=== PATIENT | female | born 1940 | race Native Hawaiian/Other Pacific Islander ===

== ENCOUNTER 2018-02-11 06:37 | Day surgery (SDC) | payer MEDICARE, MEDICAID ==
[2018-02-06 11:03] VITALS: BMI 21.9
[2018-02-11] MEDS ORDERED: HEPARIN-NS 5,000 UNITS/500 ML 5,000 UNIT/500 ML BAG IV ONE (07:34)
[2018-02-11] MEDS ORDERED: ceFAZolin IV 1 gm in Dextrose 1 GM/50 ML BAG IVPB ONE (07:35)
[2018-02-11 07:51] LABS: CALCIUM 9.1 mg/dl (8.6-10.4)
[2018-02-11] MEDS ORDERED: Rocuronium 10 mg/ml (5 ml) ONE (07:58)
[2018-02-11] MEDS ORDERED: Succinylcholine Chloride 20 mg/ml Syr (5 ml) IV ONE (07:58)
[2018-02-11] MEDS ORDERED: Propofol 10 mg/ml Inj (20 ML) ONE (07:59)
[2018-02-11] MEDS ORDERED: ePHEDrine 50 mg/ml Inj ONE (08:18)
[2018-02-11] MEDS ORDERED: Thrombin Topical 20,000 Intl Units Spray Kit TOP ONE (10:04)
[2018-02-11 10:14] VITALS: PULSE 56; RESP 20; TEMP 97.9; O2SAT 100
[2018-02-11] MEDS ORDERED: Neostigmine Methylsulfate 3mg/3ml Syringe IV ONE (10:25)
--- NOTE | 2018-02-11 10:37 | PCM.SURG1 ---
Surgeon's Initial Post Op Note - Surgeon's Notes Surgeon: alexanrda Clinical Biostatistician: 0 Type of Anesthesia: General LMA Anesthesia Administered By: titus Pre-Operative Diagnosis: renal failure Operative Findings: fistula from bifurcation to spatulated cephalic vein Post-Operative Diagnosis: same Operation Performed: biderctional av fistula cephalic vein to bifurcation of brachial artery Specimen/Specimens Removed: 0 Estimated Blood Loss: EBL {In ML}: 50 Blood Products Given: N/A Drains Used: No Drains Post-Op Condition: Good Date of Surgery/Procedure: 02/11/18 Time of Surgery/Procedure: 10:37
[2018-02-11] MEDS ORDERED: Oxycodone/Acetaminophen 5/325 mg Tab PO PRN (10:38)
[2018-02-11] MEDS ORDERED: HYDROmorphone 0.5 mg/0.5 ml ISec IVP PRN (10:45)
[2018-02-11 14:47] VITALS: BP 126/73
--- NOTE | 2018-02-11 22:37 | OP ---
PROCEDURE DATE: 02/11/2018 PREOPERATIVE DIAGNOSIS: Renal failure. POSTOPERATIVE DIAGNOSIS: Renal failure. PROCEDURE CARRIED OUT: Brachiocephalic fistula, left elbow. SURGEON: Yoandy Sanders Jr., MD DIRECTOR OF CHANNEL MARKETING: None. ANESTHESIOLOGIST: Dr. Crawford. TYPE OF ANESTHESIA: General anesthesia. INDICATION FOR PROCEDURE: The patient is 78-year-old woman with renal insufficiency, now requiring dialysis. OPERATIVE FINDINGS: Fistula was created between the very good cephalic vein and the adjacent brachial artery just at the bifurcation and tapering onto the radial artery. At the end of the procedure, there was a palpable pulse at the wrist and excellent flow to the fistula. The anastomosis was carried out using loupe magnification and heparin anticoagulation. There is excellent flow to the fistula and a palpable pulse at the wrist. DESCRIPTION OF PROCEDURE: The patient was given general anesthesia and intravenous antibiotics. The vein was marked with the use of ultrasound. The adjacent areas were identified. An end-to-side spatula and fistula was carried out in bidirectional fashion, centering on the elbow. After completion of the anastomosis and obtaining hemostasis, there was a persistent ooze. The suture was reinforced and taken on the suture line, but basically there was no identifiable source that we could identify. We spent over an hour. We waited till heparin was off. We also administered thrombin locally, which appeared to control . We dried prior to closure. We then closed the wound in two layers. We then closed the skin with nylon sutures. BLOOD LOSS: 600 mL. OPERATION CARRIED OUT: Brachiocephalic fistula, left elbow, bidirectional. Yoandy Sanders Jr., MD cc: Tigre Gavin MD
== END 2018-02-11 15:04 | disposition home or self-care (01) ==
LOC: C.SDS 06:37
PROVIDERS: ATTEND Surgery Vascular Surgery
DX: N19 Unspecified kidney failure (principal); Z99.2 Dependence on renal dialysis
CPT/HCPCS: 36415; 36821; 80048; J0690; J1644; J2001; J2405; J2704; J2710; J3010

== ENCOUNTER 2018-06-05 12:18 | Inpatient (IN) | payer MEDICARE, MEDICAID ==
[2018-06-05 12:19] VITALS: BMI 21.9
--- NOTE | 2018-06-05 13:03 | C.PDOC ---
History Of Present Illness 78 year old female with worsening potassium referred for evaluation by Dr. omer. Patient with history of CRI, patient is on keyexalate every other day for one year. Patient denies new symptoms, shortness of breath/dyspnea on exerti on, chest pain and leg swelling. Patient reports normal urinary output. Patient states "I feel fine." WORSENING POTASSIUM REFERRED FOR EVAL BY DR OMER. HO CRI, PS ON KAYEXALATE EVERY OTHER DAY X 1 YR. DENIES NEW SX, NO SOB/SANTANA, CP, LEG SWELL. NORMAL URINE OUTPUT. "I FEEL FINE" EXAM NAD LUNGS CTA B/L NO W/R/R CV RRR ABD NEG NO EDEMA GAIT WNL REMAINDER NEG Time Seen by Provider: 06/05/18 13:01 Chief Complaint (Nursing): Medical Clearance History Per: Patient History/Exam Limitations: no limitations Onset/Duration Of Symptoms: Hrs Current Symptoms Are (Timing): Still Present Additional History Per: Patient Past Medical History Reviewed: Historical Data, Nursing Documentation, Vital Signs Vital Signs: Last Vital Signs Temp 98.2 F 06/05/18 12:32 Pulse 64 06/05/18 12:32 Resp 17 06/05/18 12:32 BP 159/71 H 06/05/18 12:32 Pulse Ox 100 06/05/18 12:32 - Medical History PMH: HTN, Hypercholesterolemia, End Stage Renal Disease, Chronic Kidney Disease Surgical History: No Surg Hx Family History: States: Unknown Family Hx - Social History Hx Alcohol Use: No Hx Substance Use: No - Immunization History Hx Tetanus Toxoid Vaccination: No Hx Influenza Vaccination: Yes Hx Pneumococcal Vaccination: Yes Review Of Systems Constitutional: Positive for: Other (abnormal labs ) Cardiovascular: Negative for: Chest Pain Respiratory: Negative for: Shortness of Breath, SOB with Excertion Skin: Negative for: Other (leg swelling ) Physical Exam - Physical Exam Appears: Non-toxic, No Acute Distress Skin: Normal Color, Warm, Dry Head: Atraumatic, Normacephalic Eye(s): bilateral: Normal Inspection Oral Mucosa: Moist Neck: Supple Chest: Symmetrical, No Deformity, No Tenderness Cardiovascular: Rhythm Regular, No Murmur Respiratory: Normal Breath Sounds, No Rales, No Rhonchi, No Wheezing, Other (clear to ausculatation bilaterally ) Gastrointestinal/Abdominal: Soft, No Tenderness, No Guarding, No Rebound Extremity: Normal ROM, Capillary Refill (less than 2 seconds ), No Swelling Neurological/Psych: Oriented x3, Normal Speech, Normal Cognition Gait: Steady ED Course And Treatment - Laboratory Results Result Diagrams: 06/05/18 14:16 06/05/18 15:20 ECG: Interpreted By Me ECG Rhythm: Sinus Rhythm ECG Interpretation: Normal Rate From EC O2 Sat by Pulse Oximetry: 100 (on RA ) Pulse Ox Interpretation: Normal - Radiology CXR: Interpreted by Me CXR Interpretation: Yes: No Acute Disease Progress - Re-Evaluation Re-evaluation Note: 06/05/18 13:02 D/W DR OMER: NEW [facility] HD +HYPERKALEMIA OUTPT. GFR 8. 5.7 ON KAYEXALATE 05/1506/05/18 15:10 EXAM UNCH INITIAL D/W DR TRUONG WILL ADMIT - Data Reviewed Data Reviewed: Lab, Diagnostic imaging, EKG, Old records Disposition Counseled Patient/Family Regarding: Studies Performed, Diagnosis - Disposition Disposition: HOSPITALIZED Disposition Time: 15:14 Condition: STABLE - POA Present On Arrival: None - Clinical Impression Clinical Impression: ESRD (end stage renal disease) - Scribe Statement The provider has reviewed the documentation as recorded by the Scribe (Jayna Carter) Provider Attestation: All medical record entries made by the Scribe were at my direction and personally dictated by me. I have reviewed the chart and agree that the record accurately reflects my personal performance of the history, physical exam, medical decision making, and the department course for this patient. I have also personally directed, reviewed, and agree with the discharge instructions and disposition.
--- NOTE | 2018-06-05 14:06 | RAD ---
Date of service: 06/05/2018 PROCEDURE: CHEST RADIOGRAPH, 1 VIEW HISTORY: SOB COMPARISON: 02/06/2018 FINDINGS: LUNGS: Clear. PLEURA: No pneumothorax or pleural fluid seen. CARDIOVASCULAR: No aortic atherosclerotic calcification present. Normal. OSSEOUS STRUCTURES: No significant abnormalities. VISUALIZED UPPER ABDOMEN: Normal. OTHER FINDINGS: None. IMPRESSION: No active disease.No significant interval change compared to the prior examination(s). Concordant results with the preliminary interpretation rendered by the emergency department physician procedure.
[2018-06-05 14:31] LABS: BASO % 0.5 % (0.0-2.0); EOS # 0.1 K/uL (0.0-0.7); EOS % 2.2 % (0.0-4.0); HEMOGLOBIN 8.7 g/dL (11.0-16.0); LYMPH # 1.5 K/uL (1.0-4.3); LYMPH % 27.5 % (20.0-40.0); MEAN CELL VOLUME 94.7 fL (81.0-99.0); MEAN CORPUSCULAR HEMOGLOBIN 30.8 pg (27.0-31.0); MEAN CORPUSCULAR HGB CONC 32.5 g/dL (33.0-37.0); MEAN PLATELET VOLUME 7.1 fL (7.2-11.7); MONO # 0.4 K/uL (0.0-0.8); NEUT # 3.4 K/uL (1.8-7.0); NEUT % 61.8 % (50.0-75.0); RBC 2.83 Mil/uL (3.80-5.20); RED CELL DISTRIBUTION WIDTH 12.8 % (11.5-14.5); WHITE BLOOD COUNT 5.5 K/uL (4.8-10.8)
--- NOTE | 2018-06-05 14:36 | CP.PCM.CON ---
History of Present Illness - History of Present Illness History of Present Illness: 78 y/o female admitted for increasing hyperkalemia, progressive renal failure. s/p AV fistula placement 14 weeks ago in preparation for dialysis. Has had severe weight loss due to uremia Last GFR=8 PMH: CKD 5 SEC HPT chronic anemia HTN pro proteinuria hyperlipidemia PSH- AV fistla FH- no CKD Review of Systems - Constitutional Constitutional: Fatigue, Lethargy, Weight Loss - EENT Eyes: absent: As Per HPI, Blind Spots, Blurred Vision, Change in Vision, Decreased Night Vision, Diplopia, Discharge, Dry Eye, Exophthalmos, Floaters, Irritation, Itchy Eyes, Loss of Peripheral Vision, Pain, Photophobia, Requires Corrective Lenses, Sees Flashes, Spots in Vision, Tunnel Vision, Other Visual Disturbances, Loss of Vision, Other Ears: absent: As Per HPI, Decreased Hearing, Ear Discharge, Ear Pain, Tinnitus, Abnormal Hearing, Disequilibrium, Dizziness, Other Nose/Mouth/Throat: absent: As Per HPI, Epistaxis, Nasal Congestion, Nasal Discharge, Nasal Obstruction, Nasal Trauma, Nose Pain, Post Nasal Drip, Sinus Pain, Sinus Pressure, Bleeding Gums, Change in Voice, Dental Pain, Dry Mouth, Dysphagia, Halitosis, Hoarsness, Lip Swelling, Mouth Lesions, Mouth Pain, Odynophagia, Sore Throat, Throat Swelling, Tongue Swelling, Facial Pain, Neck Pain, Neck Mass, Other - Cardiovascular Cardiovascular: Dyspnea on Exertion, Lightheadedness - Respiratory Respiratory: Dyspnea on Exertion - Gastrointestinal Gastrointestinal: Early Satiety, Nausea - Genitourinary Genitourinary: As Per HPI - Musculoskeletal Musculoskeletal: Muscle Cramps, Muscle Weakness, Myalgias - Neurological Neurological: Weakness Past Patient History - Past Medical History & Family History Past Medical History?: Yes Past Family History: Reviewed and not pertinent - Past Social History Smoking Status: Never Smoked Chewing Tobacco Use: No Cigar Use: No Alcohol: None Drugs: Denies Home Situation {Lives}: With Family Domestic Violence: Negative - CARDIAC Hx Hypercholesterolemia: Yes Hx Hypertension: Yes - PULMONARY Hx Respiratory Disorders: No - NEUROLOGICAL Hx Neurological Disorder: No - HEENT Hx HEENT Problems: No - RENAL Hx Chronic Kidney Disease: Yes - ENDOCRINE/METABOLIC Hx Endocrine Disorders: No - HEMATOLOGICAL/ONCOLOGICAL Hx Blood Disorders: No - INTEGUMENTARY Hx Dermatological Problems: No - MUSCULOSKELETAL/RHEUMATOLOGICAL Hx Musculoskeletal Disorders: No - GASTROINTESTINAL Hx Gastrointestinal Disorders: No - GENITOURINARY/GYNECOLOGICAL Hx Genitourinary Disorders: No - PSYCHIATRIC Hx Substance Use: No - SURGICAL HISTORY Hx Surgeries: Yes Hx Tubal Ligation: Yes Hx Vascular Access Device: Yes (LEFT UPPER ARM AV FISTULA) - ANESTHESIA Hx Anesthesia: Yes Hx Anesthesia Reactions: No Hx Malignant Hyperthermia: No Meds Allergies/Adverse Reactions: Allergies Allergy/AdvReac Type Severity Reaction Status Date / Time No Known Allergies Allergy Verified 06/05/18 12:35 Physical Exam - Constitutional Appears: No Acute Distress, Chronically Ill - Head Exam Head Exam: ATRAUMATIC, NORMAL INSPECTION - Eye Exam Eye Exam: EOMI, Normal appearance - Neck Exam Neck exam: Positive for: Normal Inspection. Negative for: Tenderness - Respiratory Exam Respiratory Exam: Clear to Auscultation Bilateral, NORMAL BREATHING PATTERN - Cardiovascular Exam Cardiovascular Exam: REGULAR RHYTHM, +S1 - GI/Abdominal Exam GI & Abdominal Exam: Soft. absent: Tenderness - Extremities Exam Extremities exam: Positive for: normal inspection. Negative for: tenderness - Neurological Exam Neurological exam: Alert, CN II-XII Intact - Skin Skin Exam: Dry, Warm Results - Vital Signs Recent Vital Signs: Last Vital Signs Temp 98.2 F 06/05/18 12:32 Pulse 62 06/05/18 14:17 Resp 15 06/05/18 14:17 BP 151/56 H 06/05/18 14:17 Pulse Ox 99 06/05/18 14:17 Assessment & Plan (1) ESRD (end stage renal disease) Status: Acute (2) Hypertensive chronic kidney disease with stage 5 chronic kidney disease or end stage renal disease Status: Acute (3) Proteinuria Status: Acute (4) Hyperlipidemia Status: Acute (5) Secondary hyperparathyroidism Status: Acute - Assessment and Plan (Free Text) Plan: check hep panel dialysis today recheck chemistries, cbc
[2018-06-05 14:43] LABS: ALB/GLOB RATIO 1.6 (1.0-2.1); ALBUMIN 4.2 g/dL (3.5-5.0); CALCIUM 9.3 mg/dl (8.6-10.4)
[2018-06-05 15:50] LABS: ALB/GLOB RATIO 1.7 (1.0-2.1); ALBUMIN 4.1 g/dL (3.5-5.0); ALT/SGPT 11 U/L (9-52); AST/SGOT 29 U/L (14-36); BLOOD UREA NITROGEN 68 mg/dL (7-17); CALCIUM 9.2 mg/dl (8.6-10.4); GFR NON-AFRICAN AMERICAN 10
--- NOTE | 2018-06-05 16:09 | CP.PCM.HP ---
<Matt Glynn - Last Filed: 06/05/18 16:01> History of Present Illness - History of Present Illness History of Present Illness: PGY-1 History and Physical [address] Huizar Patient is a 78 year old [place] female with past medical history of ESRD requiring HD (MWF), chronic anemia, HTN, HLD, arthritis brought in for evaluation from Dr. Gavin's office for progressive renal failure, worsening hyperkalemia, requiring 1st time HD session. Patient has no acute somatic complaints at this time, states "I feel fine". She is anxious about starting hemodialysis but was reassured during interview. No fevers/chills, headaches, dizziness, chest pain, palpitations, sob, cough, abdominal pain, n/v/d/c, dysuria, or changes in stool. PMHx: ESRD requiring HD (MWF), chronic anemia, HTN, HLD, arthritis PSHx: L AVF placement (01/2018) Allergies: NKDA Home Medications: Norvasc 2.5 mg PO daily Coreg 3.125 mg PO daily Crestor 5 mg PO HS daily Family Hx: Sister--ESRD on HD, uterine cancer Social Hx: denies alcohol, tobacco, illicit drug use Present on Admission - Present on Admission Any Indicators Present on Admission: No Review of Systems - Review of Systems All systems: reviewed and no additional remarkable complaints except Review of Systems: as per HPI Past Patient History - Past Medical History & Family History Past Medical History?: Yes Past Family History: Reviewed and not pertinent - Past Social History Smoking Status: Never Smoked Chewing Tobacco Use: No Cigar Use: No Alcohol: None Drugs: Denies Home Situation {Lives}: With Family Domestic Violence: Negative - CARDIAC Hx Hypercholesterolemia: Yes Hx Hypertension: Yes - PULMONARY Hx Respiratory Disorders: No - NEUROLOGICAL Hx Neurological Disorder: No - HEENT Hx HEENT Problems: No - RENAL Hx Chronic Kidney Disease: Yes - ENDOCRINE/METABOLIC Hx Endocrine Disorders: No - HEMATOLOGICAL/ONCOLOGICAL Hx Blood Disorders: No - INTEGUMENTARY Hx Dermatological Problems: No - MUSCULOSKELETAL/RHEUMATOLOGICAL Hx Musculoskeletal Disorders: No - GASTROINTESTINAL Hx Gastrointestinal Disorders: No - GENITOURINARY/GYNECOLOGICAL Hx Genitourinary Disorders: No - PSYCHIATRIC Hx Substance Use: No - SURGICAL HISTORY Hx Surgeries: Yes Hx Tubal Ligation: Yes Hx Vascular Access Device: Yes (LEFT UPPER ARM AV FISTULA) - ANESTHESIA Hx Anesthesia: Yes Hx Anesthesia Reactions: No Hx Malignant Hyperthermia: No Meds Allergies/Adverse Reactions: Allergies Allergy/AdvReac Type Severity Reaction Status Date / Time No Known Allergies Allergy Verified 06/05/18 12:35 Physical Exam - Constitutional Appears: Non-toxic, No Acute Distress - Head Exam Head Exam: ATRAUMATIC, NORMAL INSPECTION, NORMOCEPHALIC - Eye Exam Eye Exam: EOMI, Normal appearance, PERRL Pupil Exam: NORMAL ACCOMODATION - ENT Exam ENT Exam: Mucous Membranes Moist, Normal Exam - Neck Exam Neck exam: Positive for: Full Rom, Normal Inspection. Negative for: Tenderness - Respiratory Exam Respiratory Exam: Clear to Auscultation Bilateral, NORMAL BREATHING PATTERN. absent: Accessory Muscle Use, Rales, Rhonchi, Wheezes, Respiratory Distress, Stridor - Cardiovascular Exam Cardiovascular Exam: REGULAR RHYTHM, +S1, +S2 - GI/Abdominal Exam GI & Abdominal Exam: Normal Bowel Sounds, Soft. absent: Distended, Firm, Guarding, Rebound, Rigid, Tenderness - Extremities Exam Extremities exam: Positive for: normal capillary refill, normal inspection, pedal pulses present. Negative for: calf tenderness, pedal edema Additional comments: L AVF intact, palpable/audible thrill - Back Exam Back exam: NORMAL INSPECTION - Neurological Exam Neurological exam: Alert, CN II-XII Intact, Oriented x3 - Skin Skin Exam: Dry, Intact, Normal Color, Warm Results - Vital Signs Recent Vital Signs: Last Vital Signs Temp 98.2 F 06/05/18 12:32 Pulse 62 06/05/18 14:17 Resp 15 06/05/18 14:17 BP 151/56 H 06/05/18 14:17 Pulse Ox 100 06/05/18 15:14 - Labs Result Diagrams: 06/05/18 14:16 06/05/18 15:20 Labs: Laboratory Results - last 24 hr 06/05/18 06/05/18 06/05/18 14:16 14:16 15:20 WBC 5.5 RBC 2.83 L Hgb 8.7 L Hct 26.8 L MCV 94.7 MCH 30.8 MCHC 32.5 L RDW 12.8 Plt Count 131 MPV 7.1 L Neut % (Auto) 61.8 Lymph % (Auto) 27.5 [place] % (Auto) 8.0 Eos % (Auto) 2.2 Baso % (Auto) 0.5 Neut # (Auto) 3.4 Lymph # (Auto) 1.5 [place] # (Auto) 0.4 Eos # (Auto) 0.1 Baso # (Auto) 0.0 Sodium 138 137 Potassium 4.7 4.4 Chloride 105 103 Carbon Dioxide 24 24 Anion Gap 14 14 BUN 70 H 68 H Creatinine 4.2 H 4.3 H Est GFR ( Amer) 12 12 Est GFR (Non-Af Amer) 10 10 Random Glucose 120 H 112 H Calcium 9.3 9.2 % Saturation Total Bilirubin 0.4 0.3 AST 33 29 ALT 12 11 Alkaline Phosphatase 54 61 Total Protein 6.8 6.5 Albumin 4.2 4.1 Globulin 2.7 2.4 Albumin/Globulin Ratio 1.6 1.7 06/05/18 15:20 WBC RBC Hgb Hct MCV MCH MCHC RDW Plt Count MPV Neut % (Auto) Lymph % (Auto) [place] % (Auto) Eos % (Auto) Baso % (Auto) Neut # (Auto) Lymph # (Auto) [place] # (Auto) Eos # (Auto) Baso # (Auto) Sodium Potassium Chloride Carbon Dioxide Anion Gap BUN Creatinine Est GFR ( Amer) Est GFR (Non-Af Amer) Random Glucose Calcium % Saturation 17 L Total Bilirubin AST ALT Alkaline Phosphatase Total Protein Albumin Globulin Albumin/Globulin Ratio Assessment & Plan - Assessment and Plan (Free Text) Assessment: 78 year old female with pmhx of ESRD requiring HD (MWF), HTN, HLD, chronic anemia sent to ED by Dr. Gavin for increasing hyperkalemia, progressive renal failure, in need of 1st time HD. Plan: ESRD on HD (MWF) -BUN/Cr: 70/4.2 -K: 4.7 -GFR (05/2018: 8 -s/p L AVF placement (01/2018) in preparation for HD -patient to undergo 1st time HD session this PM -CXR: no acute findings -EKG: NSR @ 60 bpm -Nephrology (Dr. Gavin) on board -Calcitriol 0.25 mcg PO daily -Sevelamer 800 mg PO TIDCC Anemia -Hb/Hct: 8.7/26.8, continue to monitor -iron panel HTN -resume home med -Norvasc 2.5 mg PO daily -Coreg 3.125 mg PO daily HLD -f/u lipid panel -resume home Crestor 5 mg PO HS PPx, Diet, Disposition -DVT ppx: scds, heparin 5000 units sc q8h -GI ppx: not indicated at this time -Diet: renal diet -PT on board Case discussed with Dr. Gaye Glynn DO, PGY-1 <Chalino Huizar H - Last Filed: 06/05/18 17:56> Results - Vital Signs Recent Vital Signs: Last Vital Signs Temp 97.7 F 06/05/18 16:35 Pulse 69 06/05/18 16:35 Resp 16 06/05/18 16:35 BP 169/83 H 06/05/18 16:50 Pulse Ox 100 06/05/18 16:35 - Labs Result Diagrams: 06/05/18 14:16 06/05/18 15:20 Labs: Laboratory Results - last 24 hr 06/05/18 06/05/18 06/05/18 14:16 14:16 15:20 WBC 5.5 RBC 2.83 L Hgb 8.7 L Hct 26.8 L MCV 94.7 MCH 30.8 MCHC 32.5 L RDW 12.8 Plt Count 131 MPV 7.1 L Neut % (Auto) 61.8 Lymph % (Auto) 27.5 [place] % (Auto) 8.0 Eos % (Auto) 2.2 Baso % (Auto) 0.5 Neut # (Auto) 3.4 Lymph # (Auto) 1.5 [place] # (Auto) 0.4 Eos # (Auto) 0.1 Baso # (Auto) 0.0 Sodium 138 137 Potassium 4.7 4.4 Chloride 105 103 Carbon Dioxide 24 24 Anion Gap 14 14 BUN 70 H 68 H Creatinine 4.2 H 4.3 H Est GFR ( Amer) 12 12 Est GFR (Non-Af Amer) 10 10 Random Glucose 120 H 112 H Calcium 9.3 9.2 % Saturation Ferritin 272.0 Total Bilirubin 0.4 0.3 AST 33 29 ALT 12 11 Alkaline Phosphatase 54 61 Total Protein 6.8 6.5 Albumin 4.2 4.1 Globulin 2.7 2.4 Albumin/Globulin Ratio 1.6 1.7 Hep Bs Antigen Negative Hep B Core IgM Ab Negative Hepatitis C Antibody Negative 06/05/18 15:20 WBC RBC Hgb Hct MCV MCH MCHC RDW Plt Count MPV Neut % (Auto) Lymph % (Auto) [place] % (Auto) Eos % (Auto) Baso % (Auto) Neut # (Auto) Lymph # (Auto) [place] # (Auto) Eos # (Auto) Baso # (Auto) Sodium Potassium Chloride Carbon Dioxide Anion Gap BUN Creatinine Est GFR ( Amer) Est GFR (Non-Af Amer) Random Glucose Calcium % Saturation 17 L Ferritin Total Bilirubin AST ALT Alkaline Phosphatase Total Protein Albumin Globulin Albumin/Globulin Ratio Hep Bs Antigen Hep B Core IgM Ab Hepatitis C Antibody Attending/Attestation - Attestation I have personally seen and examined this patient.: Yes I have fully participated in the care of the patient.: Yes I have reviewed all pertinent clinical information: Yes Notes (Text): 06/05/18 17:55 Medical attending: Patient was seen and examined by me. Agree with the above note by the resident The patient was not in any acute distress The patient was sent in for her first time HD. She has a mature AVF on the R arm She already has orders for HD for tonight. Chalino Huizar
[2018-06-05 16:17] LABS: HEPATITIS B SURFACE AG Negative (NEGATIVE)
[2018-06-05 16:22] LABS: HEPATITIS B CORE AB NEGATIVE (NEGATIVE)
[2018-06-05 16:35] LABS: HEPATITIS C ANTIBODY NEGATIVE (NEGATIVE)
[2018-06-06 07:31] LABS: IRON 43 ug/dL (37-170)
[2018-06-06 07:40] LABS: % IRON SATURATION 15 (20-55); TOTAL IRON BINDING CAPACITY 292 ug/dL (250-450)
[2018-06-06 07:41] LABS: BASO % 0.6 % (0.0-2.0); EOS # 0.1 K/uL (0.0-0.7); EOS % 3.1 % (0.0-4.0); HEMOGLOBIN 8.1 g/dL (11.0-16.0); LYMPH # 1.3 K/uL (1.0-4.3); MEAN CELL VOLUME 93.1 fL (81.0-99.0); MEAN CORPUSCULAR HEMOGLOBIN 31.9 pg (27.0-31.0); MEAN CORPUSCULAR HGB CONC 34.2 g/dL (33.0-37.0); MONO # 0.4 K/uL (0.0-0.8); MONO % 9.1 % (0.0-10.0); NEUT # 2.5 K/uL (1.8-7.0); NEUT % 57.2 % (50.0-75.0); RBC 2.55 Mil/uL (3.80-5.20); RED CELL DISTRIBUTION WIDTH 12.6 % (11.5-14.5); WHITE BLOOD COUNT 4.3 K/uL (4.8-10.8)
[2018-06-06 07:43] LABS: ALB/GLOB RATIO 1.4 (1.0-2.1); ALBUMIN 3.7 g/dL (3.5-5.0); CALCIUM 8.9 mg/dl (8.6-10.4)
--- NOTE | 2018-06-06 10:18 | CP.PCM.PN ---
Subjective - Date & Time of Evaluation Date of Evaluation: 06/06/18 Time of Evaluation: 10:15 - Subjective Subjective: stable dialysis 4/5 feels same BP lower Hg lower- needs IV FE, ESAs for next dialysis today BP lower Objective - Vital Signs/Intake and Output Vital Signs (last 24 hours): Temp Pulse Resp BP Pulse Ox 98.8 F 60 20 111/67 97 06/06/18 07:00 06/06/18 07:00 06/06/18 07:00 06/06/18 07:00 06/06/18 07:00 Intake and Output: 06/06/18 06/06/18 06:59 18:59 Intake Total 120 Balance 120 - Medications Medications: Current Medications Calcitriol (Rocaltrol) 0.25 mcg PO DAILY [facility] Last Admin: 06/06/18 10:07 Dose: 0.25 mcg Carvedilol (Coreg) 3.125 mg PO BID [facility] Last Admin: 06/06/18 10:07 Dose: 3.125 mg Heparin Sodium (Porcine) (Heparin) 5,000 units SC Q8 [facility] Last Admin: 06/06/18 06:20 Dose: 5,000 units Pneumococcal Polyvalent Vaccine (Pneumovax 23 Vaccine) 0.5 ml IM .ONCE ONE Stop: 06/07/18 10:01 Sevelamer Carbonate (Renvela) 800 mg PO TIDCC [facility] Last Admin: 06/06/18 08:02 Dose: 800 mg - Labs Labs: 06/06/18 07:04 06/06/18 07:04 - Constitutional Appears: No Acute Distress, Chronically Ill - Head Exam Head Exam: ATRAUMATIC, NORMAL INSPECTION - Eye Exam Eye Exam: EOMI, Normal appearance - Neck Exam Neck Exam: Normal Inspection. absent: Tenderness - Respiratory Exam Respiratory Exam: Clear to Ausculation Bilateral, NORMAL BREATHING PATTERN - Cardiovascular Exam Cardiovascular Exam: REGULAR RHYTHM, +S1 - GI/Abdominal Exam GI & Abdominal Exam: Soft. absent: Tenderness - Extremities Exam Extremities Exam: Normal Inspection. absent: Tenderness - Neurological Exam Neurological Exam: Awake, CN II-XII Intact - Skin Skin Exam: Dry, Warm Assessment and Plan (1) ESRD (end stage renal disease) Status: Acute (2) Hypertensive chronic kidney disease with stage 5 chronic kidney disease or end stage renal disease Status: Acute (3) Proteinuria Status: Acute (4) Hyperlipidemia Status: Acute (5) Secondary hyperparathyroidism Status: Acute - Assessment and Plan (Free Text) Plan: dialysis today then MWF add EPO, IV fe hold carvedilol await PTH will need outpatient HD placement
[2018-06-06] MEDS: Ferric Sodium Gluconat Complex 62.5 mg/5 ml Vial IVPB SCH (11:31)
--- NOTE | 2018-06-06 13:54 | CP.PCM.PN ---
<Eamon Michele - Last Filed: 06/06/18 13:46> Subjective - Date & Time of Evaluation Date of Evaluation: 06/06/18 Time of Evaluation: 13:46 - Subjective Subjective: Medicine Progress Note for Dr. Huizar's service S/E at bedside. Offers no acute complaints. S/P 1st time dialysis yesterday. Denies dizziness, f/c, cp, sob, n/v, constipation or diarrhea, and dysuria. Objective - Vital Signs/Intake and Output Vital Signs (last 24 hours): Temp Pulse Resp BP Pulse Ox 98.8 F 60 20 111/67 97 06/06/18 07:00 06/06/18 07:00 06/06/18 07:00 06/06/18 07:00 06/06/18 07:00 Intake and Output: 06/06/18 06/06/18 06:59 18:59 Intake Total 120 Balance 120 - Medications Medications: Current Medications Calcitriol (Rocaltrol) 0.25 mcg PO DAILY [facility] Last Admin: 06/06/18 10:07 Dose: 0.25 mcg Epoetin Corby (Procrit) 10,000 unit IV MWF [facility] Ferric Sodium Gluconate Complex (Ferrlecit) 125 mg IVPB DAILY [facility] Stop: 06/14/18 11:01 Last Admin: 06/06/18 11:31 Dose: 125 mg Heparin Sodium (Porcine) (Heparin) 5,000 units SC Q8 [facility] Last Admin: 06/06/18 06:20 Dose: 5,000 units Pneumococcal Polyvalent Vaccine (Pneumovax 23 Vaccine) 0.5 ml IM .ONCE ONE Stop: 06/07/18 10:01 Sevelamer Carbonate (Renvela) 800 mg PO TIDCC [facility] Last Admin: 06/06/18 12:04 Dose: 800 mg - Labs Labs: 06/06/18 07:04 06/06/18 07:04 - Additional Findings Additional findings: - Constitutional Appears: Non-toxic, No Acute Distress - Head Exam Head Exam: ATRAUMATIC, NORMAL INSPECTION, NORMOCEPHALIC - Eye Exam Eye Exam: EOMI, Normal appearance, PERRL Pupil Exam: NORMAL ACCOMODATION - ENT Exam ENT Exam: Mucous Membranes Moist, Normal Exam - Neck Exam Neck exam: Positive for: Full Rom, Normal Inspection. Negative for: Tenderness - Respiratory Exam Respiratory Exam: Clear to Auscultation Bilateral, NORMAL BREATHING PATTERN. absent: Accessory Muscle Use, Rales, Rhonchi, Wheezes, Respiratory Distress, Stridor - Cardiovascular Exam Cardiovascular Exam: REGULAR RHYTHM, +S1, +S2 - GI/Abdominal Exam GI & Abdominal Exam: Normal Bowel Sounds, Soft. absent: Distended, Firm, Guarding, Rebound, Rigid, Tenderness - Extremities Exam Extremities exam: Positive for: normal capillary refill, normal inspection, pedal pulses present. Negative for: calf tenderness, pedal edema Additional comments: L AVF intact, palpable/audible thrill - Back Exam Back exam: NORMAL INSPECTION - Neurological Exam Neurological exam: Alert, CN II-XII Intact, Oriented x3 - Skin Skin Exam: Dry, Intact, Normal Color, Warm Assessment and Plan - Assessment and Plan (Free Text) Assessment: 78 year old female with pmhx of ESRD requiring HD (MWF), HTN, HLD, chronic anemia sent to ED by Dr. Gavin for increasing hyperkalemia, progressive renal failure, in need of 1st time HD. Plan: ESRD on HD (MW) -s/p L AVF placement (01/2018) in preparation for HD -s/p / dialysis -CXR: no acute findings -EKG: NSR @ 60 bpm -Nephrology (Dr. Gavin) on board -Calcitriol 0.25 mcg PO daily -Sevelamer 800 mg PO TIDCC Anemia EPO MWF [id number] IV ferric sodium 125mg IV daily Iron and TIBC normal; %saturation low HTN normotensive BP meds held Nephrology Consulted: Dr. Gavin- meds held HLD pending lipid panel PPx, Diet, Disposition -DVT ppx: scds, heparin 5000 units sc q8h -GI ppx: not indicated at this time -Diet: renal diet -PT on board Dispostion: SW planning to start on Friday to setup outpatient dialysis Case discussed with Dr. Gaye Michele, PGY-1 <Chalino Huizar - Last Filed: 06/06/18 16:52> Objective - Vital Signs/Intake and Output Vital Signs (last 24 hours): Temp Pulse Resp BP Pulse Ox 97.8 F 66 16 158/79 H 99 06/06/18 14:25 06/06/18 14:25 06/06/18 14:25 06/06/18 15:10 06/06/18 14:25 Intake and Output: 06/06/18 06/06/18 06:59 18:59 Intake Total 700 Balance 700 - Medications Medications: Current Medications Calcitriol (Rocaltrol) 0.25 mcg PO DAILY [facility] Last Admin: 06/06/18 10:07 Dose: 0.25 mcg Epoetin Corby (Procrit) 10,000 unit IV MWF [facility] Ferric Sodium Gluconate Complex (Ferrlecit) 125 mg IVPB DAILY [facility] Stop: 06/14/18 11:01 Last Admin: 06/06/18 11:31 Dose: 125 mg Heparin Sodium (Porcine) (Heparin) 5,000 units SC Q8 [facility] Last Admin: 06/06/18 14:00 Dose: 5,000 units Pneumococcal Polyvalent Vaccine (Pneumovax 23 Vaccine) 0.5 ml IM .ONCE ONE Stop: 06/07/18 10:01 Sevelamer Carbonate (Renvela) 800 mg PO TIDCC [facility] Last Admin: 06/06/18 12:04 Dose: 800 mg - Labs Labs: 06/06/18 07:04 06/06/18 07:04 Attending/Attestation - Attestation I have personally seen and examined this patient.: Yes I have fully participated in the care of the patient.: Yes I have reviewed all pertinent clinical information, including history, physical exam and plan: Yes Notes (Text): 06/06/18 16:51 Medical attending: Patient was seen and examined by me. Agree with the above note by the resident The patient was not in any acute distress when I came and saw her. She tolerated the HD very well yesterday and from what I understand will be going for HD again later this afternoon. Chalino Huizar
[2018-06-07 08:33] LABS: BASO % 0.4 % (0.0-2.0); EOS # 0.1 K/uL (0.0-0.7); EOS % 2.9 % (0.0-4.0); HEMOGLOBIN 8.6 g/dL (11.0-16.0); LYMPH # 1.4 K/uL (1.0-4.3); LYMPH % 29.7 % (20.0-40.0); MEAN CELL VOLUME 94.3 fL (81.0-99.0); MEAN CORPUSCULAR HEMOGLOBIN 31.7 pg (27.0-31.0); MEAN CORPUSCULAR HGB CONC 33.6 g/dL (33.0-37.0); MEAN PLATELET VOLUME 7.1 fL (7.2-11.7); MONO # 0.5 K/uL (0.0-0.8); MONO % 10.2 % (0.0-10.0); NEUT # 2.6 K/uL (1.8-7.0); NEUT % 56.8 % (50.0-75.0); NRBC % 0.1 % (0.0-2.0); RBC 2.72 Mil/uL (3.80-5.20); RED CELL DISTRIBUTION WIDTH 12.6 % (11.5-14.5); WHITE BLOOD COUNT 4.6 K/uL (4.8-10.8)
[2018-06-07 08:41] LABS: ALB/GLOB RATIO 1.5 (1.0-2.1); ALBUMIN 3.7 g/dL (3.5-5.0)
[2018-06-07] MEDS ORDERED: Pneumococcal 23-Valent Vaccine IM ONE (10:00)
[2018-06-07] MEDS: Ferric Sodium Gluconat Complex 62.5 mg/5 ml Vial IVPB SCH (10:28)
--- NOTE | 2018-06-07 19:12 | CP.PCM.PN ---
<Eamon Michele - Last Filed: 06/07/18 19:07> Subjective - Date & Time of Evaluation Date of Evaluation: 06/07/18 Time of Evaluation: 19:07 - Subjective Subjective: PGY-1 Medicine Progress Note for Dr. Huizar's service S/E at bedside. No overnight events as per nursing. No complaints. Denies f/c, cp, sob, n/v, constipation ro diarrhea, and dyusria. Objective - Vital Signs/Intake and Output Vital Signs (last 24 hours): Temp Pulse Resp BP Pulse Ox 98.5 F 61 20 148/82 97 06/07/18 16:00 06/07/18 16:00 06/07/18 16:00 06/07/18 16:00 06/07/18 16:00 Intake and Output: 06/07/18 06/08/18 18:59 06:59 Intake Total 580 Balance 580 - Medications Medications: Current Medications Calcitriol (Rocaltrol) 0.25 mcg PO DAILY [facility] Last Admin: 06/07/18 10:28 Dose: 0.25 mcg Epoetin Corby (Procrit) 10,000 unit IV MWF [facility] Ferric Sodium Gluconate Complex (Ferrlecit) 125 mg IVPB DAILY [facility] Stop: 06/14/18 11:01 Last Admin: 06/07/18 10:28 Dose: 125 mg Heparin Sodium (Porcine) (Heparin) 5,000 units SC Q8 [facility] Last Admin: 06/07/18 14:28 Dose: 5,000 units Sevelamer Carbonate (Renvela) 800 mg PO TIDCC [facility] Last Admin: 06/07/18 16:07 Dose: 800 mg - Labs Labs: 06/07/18 08:15 06/07/18 08:15 - Additional Findings Additional findings: - Constitutional Appears: Non-toxic, No Acute Distress - Head Exam Head Exam: ATRAUMATIC, NORMAL INSPECTION, NORMOCEPHALIC - Eye Exam Eye Exam: EOMI, Normal appearance, PERRL Pupil Exam: NORMAL ACCOMODATION - ENT Exam ENT Exam: Mucous Membranes Moist, Normal Exam - Neck Exam Neck exam: Positive for: Full Rom, Normal Inspection. Negative for: Tenderness - Respiratory Exam Respiratory Exam: Clear to Auscultation Bilateral, NORMAL BREATHING PATTERN. absent: Accessory Muscle Use, Rales, Rhonchi, Wheezes, Respiratory Distress, Stridor - Cardiovascular Exam Cardiovascular Exam: REGULAR RHYTHM, +S1, +S2 - GI/Abdominal Exam GI & Abdominal Exam: Normal Bowel Sounds, Soft. absent: Distended, Firm, Guarding, Rebound, Rigid, Tenderness - Extremities Exam Extremities exam: Positive for: normal capillary refill, normal inspection, pedal pulses present. Negative for: calf tenderness, pedal edema Additional comments: L AVF intact, palpable/audible thrill - Back Exam Back exam: NORMAL INSPECTION - Neurological Exam Neurological exam: Alert, CN II-XII Intact, Oriented x3 - Skin Skin Exam: Dry, Intact, Normal Color, Warm Assessment and Plan - Assessment and Plan (Free Text) Assessment: 78 year old female with pmhx of ESRD requiring HD (MWF), HTN, HLD, chronic anemia sent to ED by Dr. Gavin for increasing hyperkalemia, progressive renal failure, in need of 1st time HD. Plan: ESRD on HD (MWF) -s/p L AVF placement (01/2018) in preparation for HD -s/p 06/05 dialysis -dialysis on 06/06 -next session on CXR: no acute findings -EKG: NSR @ 60 bpm -Nephrology (Dr. Gavin) on board -Calcitriol 0.25 mcg PO daily -Sevelamer 800 mg PO TIDCC Anemia EPO MWF [id number] IV ferric sodium 125mg IV daily Iron and TIBC normal; %saturation low HTN normotensive BP meds held Nephrology Consulted: Dr. Gavin- meds held HLD pending lipid panel PPx, Diet, Disposition -DVT ppx: scds, heparin 5000 units sc q8h -GI ppx: not indicated at this time -Diet: renal diet -PT on board Dispostion: SW planning to start on Friday to setup outpatient dialysis Case discussed with Dr. Gaye Michele, PGY-1 <Chalino Huizar - Last Filed: 06/10/18 19:30> Objective - Vital Signs/Intake and Output Vital Signs (last 24 hours): Temp Pulse Resp BP Pulse Ox 98.2 F 75 20 123/74 95 06/10/18 15:00 06/10/18 15:00 06/10/18 15:00 06/10/18 15:00 06/10/18 15:00 - Labs Labs: 06/10/18 06:31 06/10/18 06:31 Attending/Attestation - Attestation I have personally seen and examined this patient.: Yes I have fully participated in the care of the patient.: Yes I have reviewed all pertinent clinical information, including history, physical exam and plan: Yes Notes (Text): Medical attending: I reviewed the above note by the resident and we saw and examined the patient together on our medical rounds. Agree with the above note by the resident Chalino Huizar
[2018-06-07 21:34] LABS: HDL CHOLESTEROL 48 mg/dL (30-70)
[2018-06-07 21:45] LABS: LDL CHOLESTEROL 44 mg/dL (0-129)
[2018-06-08 06:53] LABS: BASO % 0.4 % (0.0-2.0); EOS # 0.2 K/uL (0.0-0.7); EOS % 2.9 % (0.0-4.0); HEMOGLOBIN 8.5 g/dL (11.0-16.0); LYMPH # 1.3 K/uL (1.0-4.3); LYMPH % 26.1 % (20.0-40.0); MEAN CELL VOLUME 94.7 fL (81.0-99.0); MEAN CORPUSCULAR HEMOGLOBIN 31.2 pg (27.0-31.0); MEAN CORPUSCULAR HGB CONC 32.9 g/dL (33.0-37.0); MEAN PLATELET VOLUME 7.3 fL (7.2-11.7); MONO # 0.5 K/uL (0.0-0.8); NEUT # 3.2 K/uL (1.8-7.0); NEUT % 61.6 % (50.0-75.0); RBC 2.71 Mil/uL (3.80-5.20); RED CELL DISTRIBUTION WIDTH 12.7 % (11.5-14.5); WHITE BLOOD COUNT 5.2 K/uL (4.8-10.8)
[2018-06-08 07:19] LABS: ALB/GLOB RATIO 1.4 (1.0-2.1); ALBUMIN 3.6 g/dL (3.5-5.0); CALCIUM 9.2 mg/dl (8.6-10.4)
[2018-06-08] MEDS ORDERED: EPOETIN ALFA 10,000 UNIT/ML ML IV SCH (09:00)
[2018-06-08] MEDS: Ferric Sodium Gluconat Complex 62.5 mg/5 ml Vial IVPB SCH (09:05)
--- NOTE | 2018-06-08 09:39 | CP.PCM.PN ---
Subjective - Date & Time of Evaluation Date of Evaluation: 06/08/18 Time of Evaluation: 08:00 - Subjective Subjective: PGY-[address] Nair service Patient is seen and examined at bedside this morning previous to dialysis session, patient states feeling well, with mild abdominal pain, patient states is constipated since the past two days. Patient is eating and tolerating diet, patient denies fever, chills, chest pain, sob, n/v/d or any leg swelling or pain. Objective - Vital Signs/Intake and Output Vital Signs (last 24 hours): Temp Pulse Resp BP Pulse Ox 98.4 F 62 20 143/83 95 06/08/18 08:05 06/08/18 08:05 06/08/18 08:05 06/08/18 08:05 06/08/18 08:05 Intake and Output: 06/08/18 06/08/18 06:59 18:59 Intake Total 300 Balance 300 - Medications Medications: Current Medications Calcitriol (Rocaltrol) 0.25 mcg PO DAILY [facility] Last Admin: 06/08/18 09:05 Dose: 0.25 mcg Epoetin Corby (Procrit) 10,000 unit IV MWF [facility] Ferric Sodium Gluconate Complex (Ferrlecit) 125 mg IVPB DAILY [facility] Stop: 06/14/18 11:01 Last Admin: 06/08/18 09:05 Dose: 125 mg Heparin Sodium (Porcine) (Heparin) 5,000 units SC Q8 [facility] Last Admin: 06/08/18 05:03 Dose: 5,000 units Sevelamer Carbonate (Renvela) 800 mg PO TIDCC [facility] Last Admin: 06/08/18 08:38 Dose: 800 mg - Labs Labs: 06/08/18 06:44 06/08/18 06:44 - Constitutional Appears: Non-toxic, No Acute Distress - Head Exam Head Exam: ATRAUMATIC, NORMAL INSPECTION, NORMOCEPHALIC - Eye Exam Eye Exam: EOMI, Normal appearance - ENT Exam ENT Exam: Mucous Membranes Moist - Respiratory Exam Respiratory Exam: Clear to Ausculation Bilateral, NORMAL BREATHING PATTERN - Cardiovascular Exam Cardiovascular Exam: REGULAR RHYTHM, +S1, +S2 - GI/Abdominal Exam GI & Abdominal Exam: Soft, Normal Bowel Sounds. absent: Tenderness - Extremities Exam Extremities Exam: Full ROM. absent: Tenderness Additional comments: L AVF palpable/audible thrill - Back Exam Back Exam: NORMAL INSPECTION - Neurological Exam Neurological Exam: Alert, Awake, Oriented x3 - Psychiatric Exam Psychiatric exam: Normal Affect, Normal Mood - Skin Skin Exam: Dry, Normal Color, Warm Assessment and Plan - Assessment and Plan (Free Text) Assessment: 78 year old female with pmhx of ESRD requiring HD (MWF), HTN, HLD, chronic anemia sent to ED by Dr. Gavin for increasing hyperkalemia, progressive renal failure, in need of 1st time HD. Plan: ESRD on HD (MWF) -s/p L AVF placement (01/2018) in preparation for HD -CXR: no acute findings -EKG: NSR @ 60 bpm -2 dialysis session completed -HD session today 06/08 -Nephrology (Dr. Gavin) on board - continue meds, arrange for OP dialysis -Calcitriol 0.25 mcg PO daily -Sevelamer 800 mg PO TIDCC Anemia H/H 8.5/25.7 - unchanged EPO MWF [id number] IV ferric sodium 125mg IV daily Iron and TIBC normal; %saturation low HTN continue monitoring BP BP meds held Nephrology Consulted: Dr. Gavin - hold BP meds HLD TGC - 72, Chol - 91, LDL - 44, HDL 48 Pruritus left Upper extremity - Benadryl 25 mg PO QD PRN for pruritus PPx, Diet, Disposition -DVT ppx: scds, heparin 5000 units sc q8h -GI ppx: not indicated at this time -Diet: renal diet -PT on board - recomends cane - prescription for cane done -colace 100mg PO BID for constipation Dispostion: Will continue to follow up with SW for outpatient HD placement, most likely to be done tomorrow. Once placement establishment, patient can be discharged. Plan discussed with Dr Korey Qiu, PGY- 1
--- NOTE | 2018-06-08 11:34 | CP.PCM.PN ---
Subjective - Date & Time of Evaluation Date of Evaluation: 06/08/18 Time of Evaluation: 11:32 - Subjective Subjective: seen at dialysis doing better tolerating treatments well EPO, IV Fe started no new complaint Objective - Vital Signs/Intake and Output Vital Signs (last 24 hours): Temp Pulse Resp BP Pulse Ox 98 F 71 16 141/78 98 06/08/18 10:23 06/08/18 10:23 06/08/18 10:23 06/08/18 10:23 06/08/18 09:35 Intake and Output: 06/08/18 06/08/18 06:59 18:59 Intake Total 300 Balance 300 - Medications Medications: Current Medications Calcitriol (Rocaltrol) 0.25 mcg PO DAILY [facility] Last Admin: 06/08/18 09:05 Dose: 0.25 mcg Epoetin Corby (Procrit) 10,000 unit IV MWF [facility] Ferric Sodium Gluconate Complex (Ferrlecit) 125 mg IVPB DAILY [facility] Stop: 06/14/18 11:01 Last Admin: 06/08/18 09:05 Dose: 125 mg Heparin Sodium (Porcine) (Heparin) 5,000 units SC Q8 [facility] Last Admin: 06/08/18 05:03 Dose: 5,000 units Pneumococcal Polyvalent Vaccine (Pneumovax 23 Vaccine) 0.5 ml IM .ONCE ONE Stop: 06/09/18 10:01 Sevelamer Carbonate (Renvela) 800 mg PO TIDCC [facility] Last Admin: 06/08/18 08:38 Dose: 800 mg - Labs Labs: 06/08/18 06:44 06/08/18 06:44 - Constitutional Appears: No Acute Distress, Chronically Ill - Head Exam Head Exam: ATRAUMATIC, NORMAL INSPECTION - Eye Exam Eye Exam: EOMI, Normal appearance - Neck Exam Neck Exam: Normal Inspection. absent: Tenderness - Respiratory Exam Respiratory Exam: Wheezes, NORMAL BREATHING PATTERN - Cardiovascular Exam Cardiovascular Exam: REGULAR RHYTHM, +S1 - GI/Abdominal Exam GI & Abdominal Exam: Soft. absent: Tenderness - Extremities Exam Extremities Exam: Normal Inspection. absent: Tenderness - Neurological Exam Neurological Exam: Awake, CN II-XII Intact - Skin Skin Exam: Dry, Warm Assessment and Plan (1) ESRD (end stage renal disease) Status: Acute (2) Hypertensive chronic kidney disease with stage 5 chronic kidney disease or end stage renal disease Status: Acute (3) Proteinuria Status: Acute (4) Hyperlipidemia Status: Acute (5) Secondary hyperparathyroidism Status: Acute - Assessment and Plan (Free Text) Plan: dialysis MWF Same meds trying to arrange for outpatient dialysis
[2018-06-08] MEDS: Epoetin Alfa 10,000 unit/ml Dialysis IV SCH (12:30)
--- NOTE | 2018-06-08 14:53 | CARD ---
APPROVED REPORT Date of service: 06/05/2018 EKG Measurement Heart [id number] <Conclusion> Normal sinus rhythm Normal ECG
--- NOTE | 2018-06-09 07:16 | CP.PCM.PN ---
Subjective - Date & Time of Evaluation Date of Evaluation: 06/09/18 Time of Evaluation: 07:30 - Subjective Subjective: Medicine progress note for Dr. Nair. Patient seen and examined at bedside. Patient offers no complaints. Patient received dialysis yesterday with no complications. Patient reports producing normal urine; however, no bowel movement for 3 days. Denies chest pain, SOB, headaches, vision changes. Objective - Vital Signs/Intake and Output Vital Signs (last 24 hours): Temp Pulse Resp BP Pulse Ox 98.1 F 60 20 137/63 94 L 06/09/18 00:00 06/09/18 00:00 06/09/18 00:00 06/09/18 00:00 06/09/18 00:00 - Medications Medications: Current Medications Calcitriol (Rocaltrol) 0.25 mcg PO DAILY [facility] Last Admin: 06/08/18 09:05 Dose: 0.25 mcg Diphenhydramine HCl (Benadryl) 25 mg PO DAILY PRN PRN Reason: Itching / Pruritus Docusate Sodium (Colace) 100 mg PO BID [facility] Last Admin: 06/08/18 18:02 Dose: 100 mg Epoetin Corby (Procrit) 10,000 unit IV MWF [facility] Last Admin: 06/08/18 12:30 Dose: 10,000 unit Ferric Sodium Gluconate Complex (Ferrlecit) 125 mg IVPB DAILY [facility] Stop: 06/14/18 11:01 Last Admin: 06/08/18 09:05 Dose: 125 mg Pneumococcal Polyvalent Vaccine (Pneumovax 23 Vaccine) 0.5 ml IM .ONCE ONE Stop: 06/09/18 10:01 Sevelamer Carbonate (Renvela) 800 mg PO TIDCC [facility] Last Admin: 06/08/18 16:58 Dose: 800 mg - Labs Labs: 06/08/18 06:44 06/08/18 06:44 - Constitutional Appears: Non-toxic, No Acute Distress - Head Exam Head Exam: NORMAL INSPECTION - Eye Exam Eye Exam: Normal appearance - ENT Exam ENT Exam: Mucous Membranes Moist - Neck Exam Neck Exam: Normal Inspection - Respiratory Exam Respiratory Exam: Clear to Ausculation Bilateral, NORMAL BREATHING PATTERN. absent: Rales, Rhonchi, Wheezes - Cardiovascular Exam Cardiovascular Exam: +S1, +S2. absent: Murmur - GI/Abdominal Exam GI & Abdominal Exam: Soft, Normal Bowel Sounds. absent: Firm, Guarding, Rigid - Extremities Exam Extremities Exam: Full ROM. absent: Pedal Edema Additional comments: L arm AVF intact, palpable thrill present - Back Exam Back Exam: absent: CVA tenderness (L), CVA tenderness (R) - Neurological Exam Neurological Exam: Alert, Awake, Oriented x3 - Psychiatric Exam Psychiatric exam: Normal Affect, Normal Mood - Skin Skin Exam: Dry, Intact, Normal Color, Warm Assessment and Plan - Assessment and Plan (Free Text) Assessment: 78 year old female with pmhx of ESRD requiring HD (MWF), HTN, HLD, chronic anemia sent to ED by Dr. Gavin for increasing hyperkalemia, progressive renal failure. Plan: ESRD on HD (MWF) - s/p L AVF placement (01/2018) in preparation for HD - CXR: no acute findings - EKG: NSR @ 60 bpm - 2 dialysis session completed - HD session today 06/08 - Nephrology (Dr. Gavin) on board - continue meds, arrange for OP dialysis - Calcitriol 0.25 mcg PO daily - Sevelamer 800 mg PO TIDCC Anemia - H/H 8.5/25.7 - unchanged - EPO MWF [id number] IV - ferric sodium 125mg IV daily - Iron and TIBC normal; %saturation low HTN - continue monitoring BP - BP meds held - Nephrology Consulted: Dr. Gavin - hold BP meds HLD - TGC - 72, Chol - 91, LDL - 44, HDL 48 Pruritus left Upper extremity - Benadryl 25 mg PO QD PRN for pruritus PPx, Diet, Disposition - DVT ppx: scds, heparin 5000 units sc q8h - GI ppx: not indicated at this time - Diet: renal diet - PT on board - recommends cane - prescription for cane done - colace 100mg PO BID for constipation Dispostion: Will continue to follow up with SW for outpatient HD placement, most likely to be done tomorrow. Once placement establishment, patient can be discharged.
--- NOTE | 2018-06-09 09:49 | CP.PCM.PN ---
Subjective - Date & Time of Evaluation Date of Evaluation: 06/09/18 Time of Evaluation: 09:45 - Subjective Subjective: afebrile bp stable hb 8.5 and stable comfortable in bed awake alert ROS no chills fever no chest pain no sob or cough no abd pain n,v,d no dysuria no headache dizziness Objective - Vital Signs/Intake and Output Vital Signs (last 24 hours): Temp Pulse Resp BP Pulse Ox 98.9 F 70 20 137/63 97 06/09/18 08:06 06/09/18 08:06 06/09/18 08:06 06/09/18 00:00 06/09/18 08:06 Intake and Output: 06/09/18 06/09/18 06:59 18:59 Intake Total 0 Balance 0 - Medications Medications: Current Medications Calcitriol (Rocaltrol) 0.25 mcg PO DAILY [facility] Last Admin: 06/08/18 09:05 Dose: 0.25 mcg Diphenhydramine HCl (Benadryl) 25 mg PO DAILY PRN PRN Reason: Itching / Pruritus Docusate Sodium (Colace) 100 mg PO BID [facility] Last Admin: 06/08/18 18:02 Dose: 100 mg Epoetin Corby (Procrit) 10,000 unit IV MWF [facility] Last Admin: 06/08/18 12:30 Dose: 10,000 unit Ferric Sodium Gluconate Complex (Ferrlecit) 125 mg IVPB DAILY [facility] Stop: 06/14/18 11:01 Last Admin: 06/08/18 09:05 Dose: 125 mg Pneumococcal Polyvalent Vaccine (Pneumovax 23 Vaccine) 0.5 ml IM .ONCE ONE Stop: 06/09/18 10:01 Sevelamer Carbonate (Renvela) 800 mg PO TIDCC [facility] Last Admin: 06/09/18 08:22 Dose: 800 mg - Labs Labs: 06/08/18 06:44 06/08/18 06:44 - Constitutional Appears: Well, No Acute Distress - Head Exam Head Exam: ATRAUMATIC, NORMOCEPHALIC - ENT Exam ENT Exam: Mucous Membranes Moist - Respiratory Exam Respiratory Exam: Clear to Ausculation Bilateral, NORMAL BREATHING PATTERN - Cardiovascular Exam Cardiovascular Exam: REGULAR RHYTHM. absent: JVD - GI/Abdominal Exam GI & Abdominal Exam: Soft, Normal Bowel Sounds. absent: Distended, Tenderness - Extremities Exam Extremities Exam: absent: Calf Tenderness - Back Exam Back Exam: absent: CVA tenderness (L), CVA tenderness (R) - Neurological Exam Neurological Exam: Alert, Awake - Psychiatric Exam Psychiatric exam: Normal Affect, Normal Mood - Skin Skin Exam: Dry, Warm Assessment and Plan (1) Hypertensive chronic kidney disease with stage 5 chronic kidney disease or end stage renal disease Status: Acute (2) Secondary hyperparathyroidism Status: Acute - Assessment and Plan (Free Text) Plan: schedule dialysis for 06/10 orders written continue to ultrafiltrate continue loraine and iron for anemia await social service re outpatient dialysis
[2018-06-09] MEDS ORDERED: Pneumococcal 23-Valent Vaccine IM ONE (10:00)
[2018-06-09] MEDS: Ferric Sodium Gluconat Complex 62.5 mg/5 ml Vial IVPB SCH (10:11)
[2018-06-10 06:56] LABS: ALB/GLOB RATIO 1.6 (1.0-2.1); ALBUMIN 3.8 g/dL (3.5-5.0); CALCIUM 9.7 mg/dl (8.6-10.4)
[2018-06-10 07:06] LABS: BASO # 0.1 K/uL (0.0-0.2); EOS # 0.1 K/uL (0.0-0.7); EOS % 2.9 % (0.0-4.0); HEMOGLOBIN 8.5 g/dL (11.0-16.0); LYMPH # 1.2 K/uL (1.0-4.3); LYMPH % 24.9 % (20.0-40.0); MEAN CELL VOLUME 94.7 fL (81.0-99.0); MEAN CORPUSCULAR HEMOGLOBIN 31.2 pg (27.0-31.0); MEAN CORPUSCULAR HGB CONC 32.9 g/dL (33.0-37.0); MEAN PLATELET VOLUME 6.9 fL (7.2-11.7); MONO # 0.5 K/uL (0.0-0.8); MONO % 10.2 % (0.0-10.0); RBC 2.71 Mil/uL (3.80-5.20); RED CELL DISTRIBUTION WIDTH 13.1 % (11.5-14.5)
--- NOTE | 2018-06-10 07:30 | CP.PCM.PN ---
Subjective - Date & Time of Evaluation Date of Evaluation: 06/10/18 Time of Evaluation: 07:28 - Subjective Subjective: tolerating HD treatment today using AVF no chest pain no SOB no fever no n/v/d no rash no headache no cough or wheeze no myalgias continued urine production Objective - Vital Signs/Intake and Output Vital Signs (last 24 hours): Temp Pulse Resp BP Pulse Ox 98.3 F 67 20 149/73 94 L 06/10/18 00:00 06/10/18 00:00 06/10/18 00:00 06/10/18 00:00 06/10/18 00:00 Intake and Output: 06/10/18 06/10/18 06:59 18:59 Intake Total 300 Balance 300 - Medications Medications: Current Medications Calcitriol (Rocaltrol) 0.25 mcg PO DAILY [facility] Last Admin: 06/09/18 10:11 Dose: 0.25 mcg Diphenhydramine HCl (Benadryl) 25 mg PO DAILY PRN PRN Reason: Itching / Pruritus Docusate Sodium (Colace) 100 mg PO BID [facility] Last Admin: 06/09/18 17:31 Dose: 100 mg Epoetin Corby (Procrit) 10,000 unit IV MWF [facility] Last Admin: 06/08/18 12:30 Dose: 10,000 unit Ferric Sodium Gluconate Complex (Ferrlecit) 125 mg IVPB DAILY [facility] Stop: 06/14/18 11:01 Last Admin: 06/09/18 10:11 Dose: 125 mg Sevelamer Carbonate (Renvela) 800 mg PO TIDCC [facility] Last Admin: 06/09/18 17:31 Dose: 800 mg - Labs Labs: 06/10/18 06:31 06/10/18 06:31 - Constitutional Appears: Non-toxic, No Acute Distress - Head Exam Head Exam: ATRAUMATIC, NORMAL INSPECTION - Eye Exam Eye Exam: EOMI - ENT Exam ENT Exam: Mucous Membranes Moist - Neck Exam Neck Exam: Full ROM. absent: Lymphadenopathy - Respiratory Exam Respiratory Exam: Decreased Breath Sounds. absent: Accessory Muscle Use - Cardiovascular Exam Cardiovascular Exam: REGULAR RHYTHM. absent: Rubs - GI/Abdominal Exam GI & Abdominal Exam: Soft. absent: Tenderness - Extremities Exam Extremities Exam: absent: Pedal Edema - Neurological Exam Neurological Exam: Alert, Oriented x3 - Psychiatric Exam Psychiatric exam: Normal Affect, Normal Mood Assessment and Plan - Assessment and Plan (Free Text) Assessment: new HD doing well loraine and iron on HD using SALINA await dialysis unit disposition
[2018-06-10] MEDS: Ferric Sodium Gluconat Complex 62.5 mg/5 ml Vial IVPB SCH (11:55)
[2018-06-10] MEDS: Epoetin Alfa 10,000 unit/ml Dialysis IV SCH (11:55)
--- NOTE | 2018-06-10 16:41 | CP.PCM.PN ---
Subjective - Date & Time of Evaluation Date of Evaluation: 06/10/18 Time of Evaluation: 16:39 - Subjective Subjective: Progress note for Dr. Nair. Patient seen and examined at bedside. Denies complaints at this time. Denies chest pain, SOB, dizziness, lightheadedness, headache, nausea, and vomiting. Objective - Vital Signs/Intake and Output Vital Signs (last 24 hours): Temp Pulse Resp BP Pulse Ox 97.9 F 64 16 163/85 H 97 06/10/18 10:05 06/10/18 10:05 06/10/18 10:00 06/10/18 12:40 06/10/18 07:00 Intake and Output: 06/10/18 06/10/18 06:59 18:59 Intake Total 300 Balance 300 - Medications Medications: Current Medications Calcitriol (Rocaltrol) 0.25 mcg PO DAILY [facility] Last Admin: 06/10/18 09:29 Dose: Not Given Diphenhydramine HCl (Benadryl) 25 mg PO DAILY PRN PRN Reason: Itching / Pruritus Docusate Sodium (Colace) 100 mg PO BID [facility] Last Admin: 06/10/18 09:29 Dose: Not Given Epoetin Corby (Procrit) 10,000 unit IV MWF [facility] Last Admin: 06/10/18 11:55 Dose: 10,000 unit Ferric Sodium Gluconate Complex (Ferrlecit) 125 mg IVPB DAILY [facility] Stop: 06/14/18 11:01 Last Admin: 06/10/18 11:55 Dose: 125 mg Sevelamer Carbonate (Renvela) 800 mg PO TIDCC [facility] Last Admin: 06/10/18 11:44 Dose: Not Given - Labs Labs: 06/10/18 06:31 06/10/18 06:31 - Constitutional Appears: Well, No Acute Distress - Head Exam Head Exam: ATRAUMATIC, NORMOCEPHALIC - Eye Exam Eye Exam: EOMI, Normal appearance, PERRL - ENT Exam ENT Exam: Mucous Membranes Moist - Neck Exam Neck Exam: Full ROM, Normal Inspection. absent: Lymphadenopathy - Respiratory Exam Respiratory Exam: Clear to Ausculation Bilateral, NORMAL BREATHING PATTERN. absent: Rales, Rhonchi, Wheezes, Respiratory Distress - Cardiovascular Exam Cardiovascular Exam: REGULAR RHYTHM, +S1, +S2 - GI/Abdominal Exam GI & Abdominal Exam: Soft, Normal Bowel Sounds. absent: Distended, Firm, Guarding, Rigid, Tenderness, Rebound - Extremities Exam Extremities Exam: Full ROM, Normal Capillary Refill, Normal Inspection. absent: Tenderness Additional comments: LUE AVF with palpable thrill - Neurological Exam Neurological Exam: Alert, Awake, Oriented x3 Neuro motor strength exam: Left Upper Extremity: 5, Right Upper Extremity: 5, Left Lower Extremity: 5, Right Lower Extremity: 5 - Psychiatric Exam Psychiatric exam: Normal Affect, Normal Mood - Skin Skin Exam: Dry, Intact, Normal Color, Warm Assessment and Plan - Assessment and Plan (Free Text) Plan: 78 year old female with pmhx of ESRD requiring HD (MWF), HTN, HLD, chronic a nemia sent to ED by Dr. Gavin for increasing hyperkalemia, progressive renal failure. Plan: ESRD on HD (MWF) - s/p L AVF placement (01/2018) in preparation for HD - CXR: no acute findings - EKG: NSR @ 60 bpm - 2 dialysis session completed - HD session today 06/08 - Nephrology (Dr. Gavin) on board - continue meds, arrange for OP dialysis - Calcitriol 0.25 mcg PO daily - Sevelamer 800 mg PO TIDCC Anemia - H/H 8.5/25.7 - unchanged - EPO MWF [id number] IV - ferric sodium 125mg IV daily - Iron and TIBC normal; %saturation low HTN - continue monitoring BP - BP meds held - Nephrology Consulted: Dr. Gavin - hold BP meds HLD - TGC - 72, Chol - 91, LDL - 44, HDL 48 Pruritus left Upper extremity - Benadryl 25 mg PO QD PRN for pruritus PPx, Diet, Disposition - DVT ppx: scds, heparin 5000 units sc q8h - GI ppx: not indicated at this time - Diet: renal diet - PT on board - recommends cane - prescription for cane done - colace 100mg PO BID for constipation Dispostion: Pending out patient dialysis placement. Will f/u with SW. Once placement establishment, patient can be discharged.
[2018-06-10 16:58] VITALS: BP 123/74; PULSE 75; RESP 20; TEMP 98.2; O2SAT 95
--- NOTE | 2018-06-10 17:58 | CP.PCM.DIS ---
<SamiaJana P - Last Filed: 06/10/18 21:33> Provider - Provider Date of Admission: 06/07/18 12:31 Attending physician: Vijay Nair MD Time Spent in preparation of Discharge (in minutes): 30 Diagnosis - Discharge Diagnosis (1) ESRD (end stage renal disease) Status: Acute Hospital Course - Lab Results Lab Results: Most Recent Lab Values WBC 5.0 K/uL (4.8-10.8) 06/10/18 06:31 RBC 2.71 Mil/uL (3.80-5.20) L 06/10/18 06:31 Hgb 8.5 g/dL (11.0-16.0) L 06/10/18 06:31 Hct 25.7 % (34.0-47.0) L 06/10/18 06:31 MCV 94.7 fL (81.0-99.0) 06/10/18 06:31 MCH 31.2 pg (27.0-31.0) H 06/10/18 06:31 MCHC 32.9 g/dL (33.0-37.0) L 06/10/18 06:31 RDW 13.1 % (11.5-14.5) 06/10/18 06:31 Plt Count 143 K/uL (130-400) 06/10/18 06:31 MPV 6.9 fL (7.2-11.7) L 06/10/18 06:31 Neut % (Auto) 61.0 % (50.0-75.0) 06/10/18 06:31 Lymph % (Auto) 24.9 % (20.0-40.0) 06/10/18 06:31 [place] % (Auto) 10.2 % (0.0-10.0) H 06/10/18 06:31 Eos % (Auto) 2.9 % (0.0-4.0) 06/10/18 06:31 Baso % (Auto) 1.0 % (0.0-2.0) 06/10/18 06:31 Neut # (Auto) 3.0 K/uL (1.8-7.0) 06/10/18 06:31 Lymph # (Auto) 1.2 K/uL (1.0-4.3) 06/10/18 06:31 [place] # (Auto) 0.5 K/uL (0.0-0.8) 06/10/18 06:31 Eos # (Auto) 0.1 K/uL (0.0-0.7) 06/10/18 06:31 Baso # (Auto) 0.1 K/uL (0.0-0.2) 06/10/18 06:31 Sodium 136 mmol/L (132-148) 06/10/18 06:31 Potassium 4.1 mmol/L (3.6-5.2) 06/10/18 06:31 Chloride 99 mmol/L (98-107) 06/10/18 06:31 Carbon Dioxide 29 mmol/L (22-30) 06/10/18 06:31 Anion Gap 12 (10-20) 06/10/18 06:31 BUN 47 mg/dL (7-17) H 06/10/18 06:31 Creatinine 4.3 mg/dL (0.7-1.2) H 06/10/18 06:31 Est GFR ( Amer) 12 06/10/18 06:31 Est GFR (Non-Af Amer) 10 06/10/18 06:31 POC Glucose (mg/dL) 127 mg/dL (65-110) H 06/10/18 16:34 Random Glucose 97 mg/dL (65-105) 06/10/18 06:31 Calcium 9.7 mg/dl (8.6-10.4) 06/10/18 06:31 Phosphorus 4.1 mg/dL (2.5-4.5) 06/10/18 06:31 Magnesium 1.2 mg/dL (1.6-2.3) L 06/10/18 06:31 Iron 43 ug/dL (37-170) 06/06/18 07:04 TIBC 292 ug/dL (250-450) 06/06/18 07:04 % Saturation 15 (20-55) L 06/06/18 07:04 Ferritin 272.0 ng/mL 06/05/18 15:20 Total Bilirubin 0.3 mg/dL (0.2-1.3) 06/10/18 06:31 AST 50 U/L (14-36) H D 06/10/18 06:31 ALT 24 U/L (9-52) 06/10/18 06:31 Alkaline Phosphatase 54 U/L (38-126) 06/10/18 06:31 Total Protein 6.2 g/dL (6.3-8.3) L 06/10/18 06:31 Albumin 3.8 g/dL (3.5-5.0) 06/10/18 06:31 Globulin 2.4 gm/dL (2.2-3.9) 06/10/18 06:31 Albumin/Globulin Ratio 1.6 (1.0-2.1) 06/10/18 06:31 Triglycerides 72 mg/dL (0-149) D 06/07/18 20:55 Cholesterol 91 mg/dL (0-199) 06/07/18 20:55 LDL Cholesterol Direct 44 mg/dL (0-129) 06/07/18 20:55 HDL Cholesterol 48 mg/dL (30-70) 06/07/18 20:55 Phospholipids 153 mg/dL (151-264) 06/05/18 15:20 PTH Intact Whole Molec 217 pg/mL (14-64) H 06/06/18 07:04 Hep Bs Antigen Negative (NEGATIVE) 06/05/18 15:20 Hep B Core IgM Ab Negative (NEGATIVE) 06/05/18 15:20 Hepatitis C Antibody Negative (NEGATIVE) 06/05/18 15:20 - Hospital Course Hospital Course: On admission: Patient is a 78 year old [place] female with past medical history of ESRD requiring HD (MWF), chronic anemia, HTN, HLD, arthritis brought in for evaluation from Dr. Gavin's office for progressive renal failure, worsening hyperkalemia, requiring 1st time HD session. Patient has no acute somatic complaints at this time, states "I feel fine". She is anxious about starting hemodialysis but was reassured during interview. No fevers/chills, headaches, dizziness, chest pain, palpitations, sob, cough, abdominal pain, n/v/d/c, dysuria, or changes in stool. Hospital Course: Patient started hemodialysis on MWF schedule, as ordered by [employer] Dr. Gavin. Patient tolerated dialysis sessions well. BP monitored and ranged between 130-160 systolic. Dispostion: Patient is stable for discharge as per Dr. Nair. Patient has dialysis placement in [place] with transport. Patient is to resume all her home medications (states she has meds at home): Amlodipine 4mg PO daily, Coreg 6.25mg daily, Vitamin B complex No3. 1 tab daily, Crestor 10mg PO HS, Renvela 800mg three times per day, Calcitriol 0.25mcg PO daily. Patient is to follow up with her primary care physician and [employer] within one week of discharge. If patient does not have primary care doctor, she may go to [facility], call [phone] to make an appointment. Please return to ED for new or worsening symptoms. Discharge Exam - Additional Findings Additional findings: - Constitutional Appears: Well, No Acute Distress - Head Exam Head Exam: ATRAUMATIC, NORMOCEPHALIC - Eye Exam Eye Exam: EOMI, Normal appearance, PERRL - ENT Exam ENT Exam: Mucous Membranes Moist - Neck Exam Neck Exam: Full ROM, Normal Inspection. absent: Lymphadenopathy - Respiratory Exam Respiratory Exam: Clear to Ausculation Bilateral, NORMAL BREATHING PATTERN. absent: Rales, Rhonchi, Wheezes, Respiratory Distress - Cardiovascular Exam Cardiovascular Exam: REGULAR RHYTHM, +S1, +S2 - GI/Abdominal Exam GI & Abdominal Exam: Soft, Normal Bowel Sounds. absent: Distended, Firm, Guarding, Rigid, Tenderness, Rebound - Extremities Exam Extremities Exam: Full ROM, Normal Capillary Refill, Normal Inspection. absent: Tenderness Additional comments: LUE AVF with palpable thrill - Neurological Exam Neurological Exam: Alert, Awake, Oriented x3 Neuro motor strength exam: Left Upper Extremity: 5, Right Upper Extremity: 5, Left Lower Extremity: 5, Right Lower Extremity: 5 - Psychiatric Exam Psychiatric exam: Normal Affect, Normal Mood - Skin Skin Exam: Dry, Intact, Normal Color, Warm Discharge Plan - Follow Up Plan Condition: STABLE Disposition: HOME/ ROUTINE Instructions: DASH Diet, Hyperparathyroidism (DC), End Stage Kidney Disease (DC), Dietary Fats Referrals: Angela Tsang MD [Staff Provider] - <Vijay Nair - Last Filed: 06/11/18 13:00> Provider - Provider Date of Admission: 06/07/18 12:31 Attending physician: Vijay Nair MD Hospital Course - Lab Results Lab Results: Most Recent Lab Values WBC 5.0 K/uL (4.8-10.8) 06/10/18 06:31 RBC 2.71 Mil/uL (3.80-5.20) L 06/10/18 06:31 Hgb 8.5 g/dL (11.0-16.0) L 06/10/18 06:31 Hct 25.7 % (34.0-47.0) L 06/10/18 06:31 MCV 94.7 fL (81.0-99.0) 06/10/18 06:31 MCH 31.2 pg (27.0-31.0) H 06/10/18 06:31 MCHC 32.9 g/dL (33.0-37.0) L 06/10/18 06:31 RDW 13.1 % (11.5-14.5) 06/10/18 06:31 Plt Count 143 K/uL (130-400) 06/10/18 06:31 MPV 6.9 fL (7.2-11.7) L 06/10/18 06:31 Neut % (Auto) 61.0 % (50.0-75.0) 06/10/18 06:31 Lymph % (Auto) 24.9 % (20.0-40.0) 06/10/18 06:31 [place] % (Auto) 10.2 % (0.0-10.0) H 06/10/18 06:31 Eos % (Auto) 2.9 % (0.0-4.0) 06/10/18 06:31 Baso % (Auto) 1.0 % (0.0-2.0) 06/10/18 06:31 Neut # (Auto) 3.0 K/uL (1.8-7.0) 06/10/18 06:31 Lymph # (Auto) 1.2 K/uL (1.0-4.3) 06/10/18 06:31 [place] # (Auto) 0.5 K/uL (0.0-0.8) 06/10/18 06:31 Eos # (Auto) 0.1 K/uL (0.0-0.7) 06/10/18 06:31 Baso # (Auto) 0.1 K/uL (0.0-0.2) 06/10/18 06:31 Sodium 136 mmol/L (132-148) 06/10/18 06:31 Potassium 4.1 mmol/L (3.6-5.2) 06/10/18 06:31 Chloride 99 mmol/L (98-107) 06/10/18 06:31 Carbon Dioxide 29 mmol/L (22-30) 06/10/18 06:31 Anion Gap 12 (10-20) 06/10/18 06:31 BUN 47 mg/dL (7-17) H 06/10/18 06:31 Creatinine 4.3 mg/dL (0.7-1.2) H 06/10/18 06:31 Est GFR ( Amer) 12 06/10/18 06:31 Est GFR (Non-Af Amer) 10 06/10/18 06:31 POC Glucose (mg/dL) 127 mg/dL (65-110) H 06/10/18 16:34 Random Glucose 97 mg/dL (65-105) 06/10/18 06:31 Calcium 9.7 mg/dl (8.6-10.4) 06/10/18 06:31 Phosphorus 4.1 mg/dL (2.5-4.5) 06/10/18 06:31 Magnesium 1.2 mg/dL (1.6-2.3) L 06/10/18 06:31 Iron 43 ug/dL (37-170) 06/06/18 07:04 TIBC 292 ug/dL (250-450) 06/06/18 07:04 % Saturation 15 (20-55) L 06/06/18 07:04 Ferritin 272.0 ng/mL 06/05/18 15:20 Total Bilirubin 0.3 mg/dL (0.2-1.3) 06/10/18 06:31 AST 50 U/L (14-36) H D 06/10/18 06:31 ALT 24 U/L (9-52) 06/10/18 06:31 Alkaline Phosphatase 54 U/L (38-126) 06/10/18 06:31 Total Protein 6.2 g/dL (6.3-8.3) L 06/10/18 06:31 Albumin 3.8 g/dL (3.5-5.0) 06/10/18 06:31 Globulin 2.4 gm/dL (2.2-3.9) 06/10/18 06:31 Albumin/Globulin Ratio 1.6 (1.0-2.1) 06/10/18 06:31 Triglycerides 72 mg/dL (0-149) D 06/07/18 20:55 Cholesterol 91 mg/dL (0-199) 06/07/18 20:55 LDL Cholesterol Direct 44 mg/dL (0-129) 06/07/18 20:55 HDL Cholesterol 48 mg/dL (30-70) 06/07/18 20:55 Phospholipids 153 mg/dL (151-264) 06/05/18 15:20 PTH Intact Whole Molec 217 pg/mL (14-64) H 06/06/18 07:04 Hep Bs Antigen Negative (NEGATIVE) 06/05/18 15:20 Hep B Core IgM Ab Negative (NEGATIVE) 06/05/18 15:20 Hepatitis C Antibody Negative (NEGATIVE) 06/05/18 15:20 Attending/Attestation - Attestation I have personally seen and examined this patient.: Yes I have fully participated in the care of the patient.: Yes I have reviewed all pertinent clinical information, including history, physical exam and plan: Yes Notes (Text): Seen and examined by me. Patient is ready for discharge. Out patient dialysis arranged Continue home meds and follow her primary care and nephrology
== END 2018-06-10 19:07 | disposition home or self-care (01) | DRG 682 ==
LOC: C.ER 12:18 → C.9E 15:14 → C.3T 16:57 → INTOOBSV 06-06 13:35 → OBSVTOIN 06-06 13:35
PROVIDERS: ADMIT Internal Medicine; ATTEND Internal Medicine
PROC: 5A1D70Z Performance of Urinary Filtration, Intermittent, Less than 6 Hours Per Day (ICD-10-PCS; principal; 2018-06-05)
PROC: 5A1D70Z Performance of Urinary Filtration, Intermittent, Less than 6 Hours Per Day (ICD-10-PCS; 2018-06-08)
PROC: 5A1D70Z Performance of Urinary Filtration, Intermittent, Less than 6 Hours Per Day (ICD-10-PCS; 2018-06-10)
DX: I12.0 Hypertensive chronic kidney disease with stage 5 chronic kidney disease or end stage renal disease (principal); N18.6 End stage renal disease; N25.81 Secondary hyperparathyroidism of renal origin; E87.5 Hyperkalemia; D63.1 Anemia in chronic kidney disease; E78.5 Hyperlipidemia, unspecified; E78.00 Pure hypercholesterolemia, unspecified; K59.00 Constipation, unspecified; Z79.899 Other long term (current) drug therapy; Z98.51 Tubal ligation status; Z80.49 Family history of malignant neoplasm of other genital organs